=== PATIENT | female | born 1955 | race African-American/Black ===

== ENCOUNTER → 2021-08-30 | Day surgery (SDC) | payer MEDICARE, MEDICAID ==
[~2021-08-30] MED LIST: LIDOCAINE HCL/PF 1% 10 MG/ML 5ML VIAL ONE; SODIUM BICARBONATE 4% (2.4MEQ) 5ML VIAL IV ONE
== END | disposition home or self-care (01) ==
LOC: RAD 09:13
PROVIDERS: ATTEND Specialist
DX: E04.1 Nontoxic single thyroid nodule (principal); Z79.899 Other long term (current) drug therapy; Z98.890 Other specified postprocedural states; Z88.5 Allergy status to narcotic agent
CPT/HCPCS: 10005; 88172; 88173; J3490

== ENCOUNTER 2022-12-02 05:55 | Emergency (ER) | payer MEDICARE, MEDICAID ==
[~2022-12-02] VITALS: Ht 162.6 cm; Wt 55.0 kg
[2022-12-02] MEDS ORDERED: DIPHENHYDRAMINE 50MG/ML VIAL IV ONE (07:00)
[2022-12-02] MEDS ORDERED: SODIUM CHLORIDE 0.9% 1,000 ML IV ONE (07:00)
[2022-12-02] MEDS ORDERED: METOCLOPRAMIDE HCL 10MG/2ML VIAL IV ONE (07:00)
[2022-12-02] MEDS ORDERED: HYDRALAZINE 20MG/ML VIAL IM ONE (07:45)
[2022-12-02 10:01] VITALS: BP 150/76
[2022-12-02] MEDS ORDERED: KETOROLAC 15MG/ML VIAL IV ONE (10:15)
== END 2022-12-02 10:32 | disposition home or self-care (01) ==
LOC: ER 05:55
DX: R51.9 Headache, unspecified (principal); I10 Essential (primary) hypertension; Z88.5 Allergy status to narcotic agent
CPT/HCPCS: 96361; 96372; 96374; 96375; 99284; J0360; J1200; J1885; J2765; J7030

== ENCOUNTER 2025-05-02 10:43 | Emergency (ER) | payer MEDICARE, MEDICAID ==
[~2025-05-02] VITALS: Ht 162.6 cm; Wt 55.0 kg
[~2025-05-02 10:43] MED LIST changes: +AMLO5TAB88 PO; +ASPI-1406 PO; +ATOR20TA PO; -LIDOCAINE HCL/PF 1% 10 MG/ML 5ML VIAL ONE; -SODIUM BICARBONATE 4% (2.4MEQ) 5ML VIAL IV ONE; +THIA100T72 MT
[2025-05-02 10:46] VITALS: BP 159/81; TEMP 36.8; O2SAT 99
[2025-05-02 10:55] VITALS: PULSE 82; O2SAT 99
[2025-05-02] MEDS ORDERED: NAPR-677 MT (12:01)
[2025-05-02] MEDS: NAPROXEN 250MG TABLET PO ONE (12:12)
== END 2025-05-02 12:29 | disposition home or self-care (01) ==
LOC: ER 10:43
DX: S52.501A Unspecified fracture of the lower end of right radius, initial encounter for closed fracture (principal); I10 Essential (primary) hypertension; E78.00 Pure hypercholesterolemia, unspecified; Z79.899 Other long term (current) drug therapy; Z79.82 Long term (current) use of aspirin; Z79.1 Long term (current) use of non-steroidal anti-inflammatories (NSAID); Z88.5 Allergy status to narcotic agent; X58.XXXA Exposure to other specified factors, initial encounter; Y93.89 Activity, other specified; Y92.89 Other specified places as the place of occurrence of the external cause; Y99.8 Other external cause status
CPT/HCPCS: 99283; 73110; 29125; A6449; A4565

== ENCOUNTER 2025-05-07 14:43 | Emergency (ER) | payer MEDICARE, MEDICAID ==
[~2025-05-07] VITALS: Ht 165.1 cm; Wt 76.0 kg
[~2025-05-07 14:43] MED LIST changes: +NAPR-677 MT
[2025-05-07 14:46] VITALS: TEMP 98.4; O2SAT 98
[2025-05-07 15:38] VITALS: BP 160/66; PULSE 62; RESP 15; O2SAT 95
[2025-05-07] MEDS: SODIUM CHLORIDE 0.9% 1,000 ML IV ONE (15:44)
[2025-05-07] MEDS: ONDANSETRON HCL 4MG/2ML INJ IV ONE (15:44)
[2025-05-07] MEDS: ASPIRIN 325MG EC TABLET PO ONE (15:44)
[2025-05-07 16:32] LABS: BASOPHILS % 0.6 % (0.0-2.0); EOSINOPHILS % 1.0 % (0.0-5.0); HEMATOCRIT. 29.0 % (36.0-48.0); HEMOGLOBIN. 9.3 g/dL (12.0-16.0); LYMPHOCYTES % 29.9 % (20.0-50.0); MEAN PLATELET VOLUME 9.6 fl (7.4-10.4); MONOCYTES % 8.0 % (2.0-8.0); NEUTROPHILS % 60.5 % (40.0-76.0); PLATELET 247 x1000/uL (130-400); RED BLOOD CELL COUNT 2.85 mill/uL (4.2-5.4); RED CELL DISTRIBUTION WIDTH 15.7 % (11.6-14.6)
[2025-05-07 16:48] LABS: CREATININE 0.8 mg/dL (0.6-1.0)
[2025-05-07 16:49] LABS: TROPONIN I HIGH SENSITIVITY < 4 ng/L (3.0-34); UREA NITROGEN BLOOD 9 mg/dL (9-23)
[2025-05-07 16:50] LABS: ASPARTATE AMINOTRANSFERASE 26 IU/L (<34)
[2025-05-07 16:51] LABS: BILIRUBIN DIRECT 0.1 mg/dL (<=3.0); BILIRUBIN TOTAL 0.4 mg/dL (0.1-1.0); PROTEIN TOTAL 6.2 g/dL (6.0-8.3)
[2025-05-07] MEDS ORDERED: ASPI-1497 MT (16:56)
== END 2025-05-07 17:17 | disposition left against medical advice (07) ==
LOC: ER 14:43 → CMPBEDREQ 18:58
DX: I10 Essential (primary) hypertension (principal); R42 Dizziness and giddiness; Z79.899 Other long term (current) drug therapy; Z88.5 Allergy status to narcotic agent
CPT/HCPCS: 80076; 80048; 80320; 83690; 83735; 85025; 84484; 36415; 71045; 70450; 93005; 96361; 96374; 99285; J2405; G0480